=== PATIENT | female | born 1965 | race Caucasian/White ===

== ENCOUNTER 2018-09-15 09:38 | Emergency (ER) | payer OTHER, BC ==
[~2018-09-15] VITALS: Ht 160 cm; Wt 89.8 kg
[~2018-09-15 09:38] MED LIST: ACETAMINOPHEN-1 EAC1 PO; IBUPROFEN 800800 MG PO; NOHOMEMEDICATIONS
[2018-09-15] MEDS ORDERED: NORCO 5-325 TA1 EACH PO (10:20)
[2018-09-15 10:24] VITALS: BP 154/99
== END 2018-09-15 10:25 | disposition home or self-care (01) ==
LOC: M.ERS 09:38
DX: S70.02XA Contusion of left hip, initial encounter (principal); V79.0 Driver of bus injured in collision with other and unspecified motor vehicles in nontraffic accident; Y93.89 Activity, other specified; Y92.89 Other specified places as the place of occurrence of the external cause; Y99.8 Other external cause status